=== PATIENT | female | born 1945 | race Caucasian/White ===

== ENCOUNTER 2017-11-24 12:46 | Outpatient (RCR) | payer MEDICARE, OTHER ==
[2017-02-04 13:27] VITALS: BMI 35.2
[~2017-11-24 12:46] MED LIST changes: -CHOL10005 PO; -VIT1CAPS9 PO
[2017-11-24] MEDS ORDERED: VIT1CAPS9 PO (16:44)
[2017-11-24] MEDS ORDERED: CHOL10005 PO (16:44)
== END 2017-12-02 11:27 | disposition home or self-care (01) ==
LOC: RAON 12:46
PROVIDERS: ATTEND Radiology Radiation Oncology
DX: C50.811 Malignant neoplasm of overlapping sites of right female breast (principal); Z17.0 Estrogen receptor positive status [ER+]; I10 Essential (primary) hypertension; Z92.3 Personal history of irradiation
CPT/HCPCS: 99212

== ENCOUNTER → 2017-11-24 | Outpatient (CLI) | payer MEDICARE, OTHER ==
[2017-02-04 13:27] VITALS: BMI 35.2
[~2017-11-24] MED LIST: ACET-2007 PO; BISA10SU66 PR; CHOL10005 PO; CHOL100058 PO; DILT120C4 PO; DILT120C79 PO; DOCU-202 PO; DOCU-416 PO; ENOX100D6 SQ; ENOX40DI8 SQ; ENOX40DI9 SQ; GLUC-180 PO; MELO-205 PO; MOM PO; MULT-820 PO; OMEG-23 PO; OXYC-854 PO; OXYGENHOME INH; POLY17PO21 PO; POTA-23 PO; VAL80 PO; VALS1TAB10 PO; VALS1TAB67 PO; VALS1TAB79 PO; VIT-9 PO; VIT1CAPS9 PO; WARF-1 PO
--- NOTE | 2017-11-25 11:09 | RADIOLOGY IMAGING REPORT ---
FACILITY: [facility] - [place] PATIENT NAME: PO VALDERRAMA : [id number] MR: [id number] V: [id number] EXAM DATE: [id number] ORDERING PHYSICIAN: STEPHANIE MEDINA TECHNOLOGIST: Archana Lamb PROCEDURE:BILATERAL DIAGNOSTIC DIGITAL MAMMOGRAM WITH CAD ASSISTED INTERPRETATION & 3D TOMOSYNTHESIS COMPARISON:Prior mammograms 02/17/17. INDICATIONS:6 MO F/U RT BREAST. FINDINGS: The previously noted spiculated mass in the upper outer quadrant of the Right breast has been removed. There is an area of post surgical scaring and architectural distortion now in this location. There is skin thickening seen throughout the Right breast from prior radiation therapy. There is no demonstration of malignant appearing mass, malignant appearing calcifications or other secondary sign of malignancy in either breast at this time. DIAGNOSTIC CATEGORY 2--BENIGN FINDING. RECOMMENDATIONS: ROUTINE MAMMOGRAM AND CLINICAL EVALUATION. IMPRESSION: BIRADS 2: Benign finding Previously noted spiculated mass upper outer quadrant of the Right breast has been surgically removed. There is skin thickening over the Right breast consistent with prior radiation therapy. Dictated by: Courtney Jose M.D. on 11/24/2017 at 17:09 Transcribed by: FORTUNATO on 11/25/2017 at 10:57 Approved by: Courtney Jose M.D. on 11/25/2017 at 11:08 [facility]
== END ==
LOC: MAMO 10:23
PROVIDERS: ATTEND Nurse Practitioner Family
DX: C50.911 Malignant neoplasm of unspecified site of right female breast (principal); Z17.0 Estrogen receptor positive status [ER+]
CPT/HCPCS: 77062; 77066

== ENCOUNTER 2018-03-02 13:01 | Outpatient (RCR) | payer MEDICARE, OTHER ==
[2017-02-04 13:27] VITALS: BMI 35.2
[~2018-03-02 13:01] MED LIST changes: +CHOL10005 PO; +VIT1CAPS9 PO
[2018-03-03] MEDS ORDERED: ACET500T68 PO (11:03)
[2018-03-08] MEDS ORDERED: IBUP600T22 PO (14:31)
== END 2018-03-09 09:46 | disposition home or self-care (01) ==
LOC: RAON 13:01
PROVIDERS: ATTEND Radiology Radiation Oncology
DX: C50.411 Malignant neoplasm of upper-outer quadrant of right female breast (principal); Z17.0 Estrogen receptor positive status [ER+]; I10 Essential (primary) hypertension; Z92.3 Personal history of irradiation; Z86.711 Personal history of pulmonary embolism
CPT/HCPCS: 99212

== ENCOUNTER → 2018-04-13 | Outpatient (CLI) | payer MEDICARE, OTHER ==
[2017-02-04 13:27] VITALS: BMI 35.2
[~2018-04-13] MED LIST changes: +ACET500T68 PO; +IBUP600T22 PO; +LOSA-54 PO
== END ==
LOC: LAB 15:47
PROVIDERS: ATTEND Internal Medicine
DX: I10 Essential (primary) hypertension (principal)
CPT/HCPCS: 36415; 82040; 82247; 82310; 82374; 82435; 82565; 82947; 84075; 84132; 84155; 84295; 84450; 84460; 84520

== ENCOUNTER → 2018-04-26 | Outpatient (CLI) | payer MEDICARE, OTHER ==
[2017-02-04 13:27] VITALS: BMI 35.2
== END ==
LOC: LAB 15:18
PROVIDERS: ATTEND Internal Medicine
DX: E87.6 Hypokalemia (principal)
CPT/HCPCS: 36415; 82310; 82374; 82435; 82565; 82947; 84132; 84295; 84520

== ENCOUNTER → 2018-07-05 | Outpatient (CLI) | payer MEDICARE, OTHER ==
[2017-02-04 13:27] VITALS: BMI 35.2
--- NOTE | 2018-07-05 17:16 | RADIOLOGY IMAGING REPORT ---
FACILITY: [facility] - [place] PATIENT NAME: Prabha Duffy : 1945 MR: [id number] V: [id number] EXAM DATE: ORDERING PHYSICIAN: HAL ABRAHAM TECHNOLOGIST: [place] [facility] [place] Prabha Duffy : 1945 Visit/Account:[id number] Date of Sevice: 07/05/2018 Exam type: LUMBAR SPINE 4 VIEWS History: Low back pain Comparison: None. Findings: There are five nonrib-bearing lumbar-type vertebral bodies present. There is mild disc space narrowi ng at L2-3, moderate to severe disc space narrowing at L3-4 with a 1.2 cm anterior listhesis of L3 wi th respect L4. There is moderate to severe disc space narrowing at L4-5 and moderate disc space narr owing at L5-S1. There are moderate degenerative facet joint changes seen bilaterally from L3 to S1. There is moderate disc space narrowing also incidentally noted in the lower thoracic spine from T10 through L1. IMPRESSION: 1. Extensive spondylotic changes of the thoracal lumbar spine as described above Report Dictated By: Courtney Jose MD at 07/05/2018 5:02 PM Report E-Signed By: Courtney Jose MD at 07/05/2018 5:11 PM WSN:[email or web address]
== END ==
LOC: RAD 16:11
PROVIDERS: ATTEND Nurse Practitioner Primary Care
DX: M47.815 Spondylosis without myelopathy or radiculopathy, thoracolumbar region (principal)
CPT/HCPCS: 72120

== ENCOUNTER 2018-07-22 12:42 | Outpatient (RCR) | payer MEDICARE, OTHER ==
[2017-02-04 13:27] VITALS: Wt 106.5 kg
[~2018-07-22 12:42] MED LIST changes: +POLY17PO11 PO; -POLY17PO21 PO
[2018-07-22 13:26] VITALS: BP 122/75
== END 2018-08-25 12:48 | disposition home or self-care (01) ==
LOC: RAON 12:42
PROVIDERS: ATTEND Radiology Radiation Oncology
DX: C50.911 Malignant neoplasm of unspecified site of right female breast (principal); Z17.0 Estrogen receptor positive status [ER+]
CPT/HCPCS: 99212

== ENCOUNTER → 2018-10-12 | Outpatient (RCR) | payer MEDICARE, OTHER ==
[2017-02-04 13:27] VITALS: BMI 35.2
--- NOTE | 2018-07-14 18:31 | PT INITIAL EVALUATION ---
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 X-ray is positive for mod/severe L3/4 disc space narrowing and 1.2 c, anterolisthesis, mod/severe disc space narrowing at L4/5 and moderate disc space narrowing L5/S1 and B facet arthropathy L3-S1. Prabha denies radicular pain or LE weakness. She reports when her LBP flares, she walks hunched over, uses a cane and finds walking is limited to short distances. Pain location is L-S and described as ache. Pain scale is 2 on a ten point pain scale. Prabha's unsure what improves or creates her LBP. REHAB PROBLEM LIST: Increased Pain Decreased ROM Impaired Bed Mobility Decreased Strength Impaired Transfers Decreased Balance Decreased Mobility Decreased Gait PREVIOUS MEDICAL HISTORY: L eye macular degeneration, a. fib., saddle PE, 2017 infiltrating ductal carcinoma grade II, noninvasive uterine cancer and hysterectomy 2017. OCCUPATION: Retired teacher. OBJECTIVE: Posture: Prabha stands with 25 deg. trunk flexion, slightly taller R iliac crest, ~1/4", R lumbar convex scoliosis. ROM: AROM lumbar spine 75% flexion, 50% extension, both reducing LBP. Repeated flexion with R T10/11 R shift. Hip PROM WNL B. Knees PROM WNL with crepitus R knee flexion. Strength: Core strength 2-/5. Burks muscles L2-S1 4+/5 to 5-/5. Palpation: Small step off palpable at L3/4, tight lumbopelvic soft tissues. Special Tests: Negative SLR, B. Tight L IT band, B piriformis, psoas. Mobility: Sit<>stand with reduced quad eccentric strength B. Sit<>prone with difficulty due to trunk weakness. Gait: Independent gait with apparent long R LE, shorter L stride length and R trunk sidebend in R midstance, trunk flexed 25 degrees. Balance: Double limb support. ASSESSMENT: Prabha Duffy presents with spinal stenosis posture, reduced flexibility, ROM and weak core not supporting the lumbar region for upright gait. She's started on isometric core strengthening HEP. Short Term Goals 1 month: Prabha ambulates 3 blocks independently without LBP. 2 months: Prabha ambulates 5-6 blocks independently without LBP. Patient's Goals Independent short distance community ambulator without LBP. PLAN: Patient to be seen for Manual Therapy/STM/MET Strengthening/condition Ice/Heat Range of Motion Spinal Stabilization Stretching Electrical Stim Posture/Body mechanics Gait Trg/Balance Trg Home Exercise Program 2x/Week for 2 Months Thank you for this referral. If you have any questions, comments, or concerns about this report or plan, please contact me at . MTDD
--- NOTE | 2018-08-27 17:07 | PT PLAN OF CARE ---
Physician: Cathleen Mahmood DNP Patient is being seen: 2x/week Therapist: Tara Hobbs PT Treatment Diagnosis: Same, altered gait Date of Onset: 09/28/15 Date of Initial Evaluation: 07/14/18 Date patient was last seen: 08/27/18 Number of treatments: 10 Number of cancellations/No shows: 0 INTERVENTIONS: Strengthening/condition, Range of Motion, Spinal Stabilization, Home Exercise Program GOALS: 1 month: Prabha ambulates 3 blocks independently without LBP (not met). 2 months: Prabha ambulates 5-6 blocks independently without LBP (not met). PATIENT'S GOAL: Independent short distance community ambulator without LBP (not met). Patient Compliance: Excellent Prognosis: Excellent Reasons for continuing therapy: S: Prabha relates when she does her HEP LBP is reduced, 10/07. She hasn't been walking, but standing is better. Oswestry Disability Index improved to 13%. Posture: Prabha stands with 25 to 15 deg. trunk flexion, slightly taller R iliac crest, ~1/4", R lumbar convex scoliosis. ROM: AROM lumbar spine WNL flexion, 75% extension, both reducing LBP. Strength: Core strength 3/5. Palpation: Small step off palpable at L3/4, tight lumbopelvic soft tissues. Special Tests: Still tight L IT band, B piriformis, psoas. Mobility: Sit<>stand with normal quad eccentric strength B. Sit<>prone without difficulty now. Gait: 3 minutes, 513 feet (~2/3 block) before trunk flexion, increased LBP. A/P: Prabha Way is improving ROM and core strength, needs ambulation endurance, stretching. If you agree, we'll continue PT, working into ambulation, more stretching to goals set. Thank you. KELECHI
== END ==
LOC: PT 07-14 15:06
PROVIDERS: ATTEND Nurse Practitioner Primary Care
DX: M47.816 Spondylosis without myelopathy or radiculopathy, lumbar region (principal); R26.89 Other abnormalities of gait and mobility; M62.81 Muscle weakness (generalized)
CPT/HCPCS: 97162

== ENCOUNTER → 2018-11-24 | Outpatient (CLI) | payer MEDICARE, OTHER ==
[2017-02-04 13:27] VITALS: BMI 35.2
[~2018-11-24] MED LIST changes: +LOSA100T75 PO
--- NOTE | 2018-11-25 09:45 | RADIOLOGY IMAGING REPORT ---
FACILITY: [facility] PATIENT NAME: PO VALDERRAMA : [id number] MR: [id number] V: [id number] EXAM DATE: [id number] ORDERING PHYSICIAN: GINO BRANNON TECHNOLOGIST: Fidelia Christianson PROCEDURE:BILATERAL DIAGNOSTIC DIGITAL MAMMOGRAM WITH CAD ASSISTED INTERPRETATION & 3D TOMOSYNTHESIS COMPARISON:Prior mammograms 11/24/17, 02/17/17. INDICATIONS:PRIOR HISTORY OF BREAST CANCER FINDINGS: There is skin thickening see throughout the Right breast consistent with the history of radiation therapy. There is an area of architectural distortion in the posterior 1/3 of the Right breast in the upper outer quadrant in the location of the previous lumpectomy site. The parenchymal pattern throughout the Left breast has remained stable. DIAGNOSTIC CATEGORY 3--PROBABLY BENIGN FINDING. RECOMMENDATIONS: SIX MONTH FOLLOW-UP DIAGNOSTIC MAMMOGRAM: RIGHT BREAST. IMPRESSION: BIRADS 3: Probably benign finding. A 6 month follow-up Right mammogram is recommended to follow the area of architectural distortion in the upper outer quadrant posterior 1/3 of the Right breast in the previous lumpectomy site. Dictated by: Courtney Jose M.D. on 11/24/2018 at 16:54 Transcribed by: FORTUNATO on 11/25/2018 at 9:40 Approved by: Courtney Jose M.D. on 11/25/2018 at 9:43 [facility]
== END ==
LOC: MAMO 14:08
PROVIDERS: ATTEND Radiology Radiation Oncology
DX: C50.911 Malignant neoplasm of unspecified site of right female breast (principal); Z17.0 Estrogen receptor positive status [ER+]
CPT/HCPCS: 77062; 77066

== ENCOUNTER 2018-11-25 13:00 | Outpatient (RCR) | payer MEDICARE, OTHER ==
[2017-02-04 13:27] VITALS: BMI 35.2
[2018-11-25 13:00] VITALS: BP 128/65
--- NOTE | 2018-12-23 10:57 | PURVIANCE FOLLOW UP ---
EVENT DATE: November 25, 2018 DIAGNOSIS/ONCOLOGY TREATMENT HISTORY Right breast infiltrating ductal carcinoma, 7 mm in size, node negative, grade 2, ER positive 83%, OK positive 92%, HER2/rainer negative, pathologic T1b N0, diagnosed in January 2017. The patient underwent lumpectomy and sentinel lymph node biopsy. The patient completed right whole breast radiotherapy in July 2017. INTERVAL HISTORY The patient presents today for followup. On presentation today, the patient overall feels well. The patient denies any breast pain, skin changes, nipple discharge or new breast masses. The patient underwent a mammogram on November 24, 2018, which revealed an area of architectural distortion in the posterior third of the right breast in the upper outer quadrant in the location of the previous lumpectomy site. This was read as probably benign, BIRADS 3. The left breast is stable and benign. Recommendation was to repeat a mammogram on the right side in six months. PAST MEDICAL HISTORY 1. Bilateral pulmonary embolism following a hysterectomy in 2017. 2. Atrial fibrillation. 3. Hypertension. 4. Pulmonary embolism. 5. Right breast cancer, see HPI. PAST SURGICAL HISTORY 1. Right breast lumpectomy. 2. Ultrasound-guided right breast biopsy. 3. Status post total hysterectomy. ALLERGIES PENICILLIN and SULFA. MEDICATIONS 1. Losartan/hydrochlorothiazide. 2. Warfarin. 3. Ibuprofen. 4. Acetaminophen. 5. Calciferol. 6. Vitamin C. SOCIAL HISTORY The patient is single. She has two children. She is a retired teacher and helicopter officer. She has no tobacco or drug use. FAMILY HISTORY Noncontributory. PHYSICAL EXAMINATION VITAL SIGNS: Temperature 96.7, pulse 79, blood pressure 128/65, respiratory rate 16, O2 saturation is 90% on room air. CONSTITUTIONAL/GENERAL APPEARANCE: Patient is sitting comfortably in the chair. No acute distress. HEENT: Pupils equal, round, and reactive to light and accommodation. Extraocular movements are intact. There are no lesions in the oropharynx. NECK: Supple. Trachea midline. LYMPHATIC SURVEY: No palpable supraclavicular or axillary lymphadenopathy bilaterally. BREASTS: Symmetric breasts with a well-healed lumpectomy scar in the right upper outer quadrant. The patient no dominant breast masses bilaterally. LUNGS: Clear to auscultation and percussion bilaterally. CARDIOVASCULAR: Regular rate and rhythm. Normal S1, S2. No murmurs, rubs, or gallops. ABDOMEN: Soft, nontender with active bowel sounds. No hepatosplenomegaly. EXTREMITIES: No edema, clubbing or cyanosis. NEUROLOGIC: The patient is alert and oriented x3. PERFORMANCE STATUS 90%. IMPRESSION Stage I right breast cancer status post breast-conserving therapy. The patient has a probably benign right mammogram with a benign left mammogram. The patient elected not to proceed with endocrine therapy and is being observed. PLAN The patient will follow up with Radiation Oncology in six months at the time of her right breast mammogram. MTDD
[2018-12-29] MEDS ORDERED: LOSA100T75 PO (16:45)
== END 2019-02-04 12:56 | disposition home or self-care (01) ==
LOC: RAON 13:00
PROVIDERS: ATTEND Radiology Radiation Oncology
DX: Z85.3 Personal history of malignant neoplasm of breast (principal); Z92.3 Personal history of irradiation
CPT/HCPCS: 99212

== ENCOUNTER 2018-12-21 14:45 | Outpatient (RCR) | payer MEDICARE, OTHER ==
[2017-02-04 13:27] VITALS: BMI 35.2
--- NOTE | 2018-10-15 16:16 | PT PLAN OF CARE ---
Physician: Cathleen Mahmood DNP 3 month business office note Patient is being seen: 2x/week Therapist: Tara Hobbs, YASIR Medical Diagnosis: M47.816 OA of lumbar spine Treatment Diagnosis: Same, altered gait Date of Onset: 09/28/15 Date of Initial Evaluation: 07/14/18 Date patient was last seen: 10/15/18 Number of treatments: 19 Number of cancellations/No shows: 0 INTERVENTIONS: Strengthening/condition, Range of Motion, Spinal Stabilization, Home Exercise Program GOALS: 1 month: Prabha ambulates 3 blocks independently without LBP (met). 2 months: Prabha ambulates 5-6 blocks independently without LBP (not met). PATIENT'S GOAL: Independent short distance community ambulator without LBP (not met). Patient Compliance: Excellent Prognosis: Excellent Reasons for continuing therapy: S: This is our business office's 3 month note: Prabha relates her LBP continues to fluctuate, but she's able to shop longer, walking upright and standing longer. BEKA 38%, rating lifting, traveling worse. She will see Dr. Pascale Ramírez 10/25/18 about pain management. Posture: Upright trunk, slightly taller R iliac crest, ~1/4", R lumbar convex scoliosis. ROM: AROM lumbar spine WNL flexion, full extension, both reducing LBP. Strength: Core strength improved to 4/5. Special Tests: Negative SLR, B. Tight L IT band while piriformis is more flexible. Mobility: Sit<>stand with trunk flexion, independent. A/P: Prabha Duffy continues to improve core strength, flexibility. If you agree, we'll continue 2x/week another 3 weeks working core strength, flexibility. Thank you. KELECHI
--- NOTE | 2018-11-05 16:18 | PT PLAN OF CARE ---
Physician: Cathleen Mahmood DNP Patient is being seen: 2x/week Therapist: Tara Hobbs PT Medical Diagnosis: M47.816 OA of lumbar spine Treatment Diagnosis: Same, altered gait Date of Onset: 09/28/15 Date of Initial Evaluation: 07/14/18 Date patient was last seen: 11/05/18 Number of treatments: 22 Number of cancellations/No shows: 0 INTERVENTIONS: Manual Therapy Strengthening/condition Heat Range of Motion Spinal Stabilization Stretching Electrical Stim Home Exercise Program GOALS: 1 month: Prabha ambulates 3 blocks independently without LBP (not met). 2 months: Prabha ambulates 5-6 blocks independently without LBP (not met). PATIENT'S GOAL: Independent short distance community ambulator without LBP (not met). Patient Compliance: Excellent Prognosis: Excellent Reasons for continuing therapy: S: Prabha had botox injections for pain management 10/29/18. Her LBP is now just at the SI and posterior hips area, 7/10 today, some days 10. Dr. Cole and I discussed getting her pelvis stronger for pain reduction. Prabha would like to do this, continuing with PT. Oswestry Disability Index 44% impairment. O: Posture: Prabha stands with 15 deg. trunk flexion, slightly taller R iliac crest, ~1/4", R lumbar convex scoliosis. ROM: AROM lumbar spine WNL flexion, 75% extension, flexion reducing LBP. Strength: Core strength 4/5. Special Tests: Improving L IT band, B piriformis, psoas. Gait: Leans L in L stance, feet clear the floor but don't pass each other. Mobility: Sit<>stand with normal quad eccentric strength B. A/P: Prabha Duffy has been fluctuating with back pain but the lumbar region has improved. If you agree, we'll continue 2x/week 6 weeks, strengthening the pelvis, stretching, modalities for pain reduction, still to goals set. MTDD
--- NOTE | 2018-12-21 17:32 | PT PLAN OF CARE ---
Physician: Cathleen Mahmood DNP Patient is being seen: 2x/week Therapist: Tara Hobbs, YASIR Medical Diagnosis: M47.816 OA of lumbar spine Treatment Diagnosis: Same, altered gait Date of Onset: 09/28/15 Date of Initial Evaluation: 07/14/18 Date patient was last seen: 12/21/18 Number of treatments: 29 Number of cancellations/No shows: 1 INTERVENTIONS: Therapeutic exercise for ROM, flexibility, core and hips strengthening, HEP GOALS: 1 month: Prabha ambulates 3 blocks independently without LBP (not met). 2 months: Prabha ambulates 5-6 blocks independently without LBP (not met). PATIENT'S GOAL: Independent short distance community ambulator without LBP (not met). Patient Compliance: Excellent Prognosis: Excellent Reasons for discontinuing therapy: S: Prabha reports she still has fluctuating LBP, but it's less overall, 11/07 today. She requests DC from PT as she feels she's not pain free and will try something else (I suggested pool therapy). Oswestry Disability Index 33%, an improvement from 11/05/18, 44%. She states she can shop 45 minutes now without LBP, hasn't ambulated more than 3 blocks, and that's with moderate LBP. Posture: Prabha stands with 25 deg. trunk flexion, slightly taller R iliac crest, ~1/4", R lumbar convex scoliosis. ROM: AROM lumbar spine WNL flexion, 75% extension. Strength: Core strength still 4/5. Special Tests: Less tight L IT band, B piriformis, psoas. Mobility: Sit<>stand with normal quad eccentric strength B. Gait: Gait with SPC with minimal trunk lean now, normal stride length, trunk flexed 25 degrees. A/P: Prabha Way has improved gait, has less LBP overall but it's still present. She has done a lot of PT. I encouraged her to try pool exercise and instructed a consolidated HEP for hips and L-S area. Per her request, I'll DC PT. Thank you. KELECHI
== END 2018-12-21 18:00 | disposition home or self-care (01) ==
LOC: PT 14:45
PROVIDERS: ATTEND Nurse Practitioner Primary Care
DX: M47.816 Spondylosis without myelopathy or radiculopathy, lumbar region (principal); R26.89 Other abnormalities of gait and mobility; M62.81 Muscle weakness (generalized)
CPT/HCPCS: 97010; 97110; 97140; G0283

== ENCOUNTER → 2018-12-29 | Outpatient (CLI) | payer MEDICARE, OTHER ==
[2017-02-04 13:27] VITALS: BMI 35.2
== END ==
LOC: LAB 13:11
PROVIDERS: ATTEND Family Medicine
DX: I10 Essential (primary) hypertension (principal)
CPT/HCPCS: 36415; 82310; 82374; 82435; 82565; 82947; 84132; 84295; 84520